=== PATIENT | male | born 2000 | race Caucasian/White ===

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

== ENCOUNTER 2021-06-11 14:29 | Emergency (ER) | payer MEDICAID ==
[~2021-06-11] VITALS: Ht 177.8 cm; Wt 105.8 kg
[2021-06-11 15:04] LABS: COLOR,URINE YELLOW
--- NOTE | 2021-06-11 15:04 | ED GU-Male ---
General Chief Complaint: - Reproductive Stated Complaint: TESTICULAR PAIN Nursing Triage Note: Patient presents to the ED with c/o bilateral testicular pain and swelling. Reports pain began after lifting a heavy tote on Friday and has not improved since. Denies difficulty or pain with urination. Source: patient History of Present Illness Date Seen by Provider: Jun 11, 2021 Time Seen by Provider: 14:31 Initial Comments 20-year-old male presenting with complaints of bilateral testicular pain and swelling since June 08. He states that he was lifting a heavy tote on Friday and felt pain after that. He has not had any improvement in his pain since then and actually feels like the swelling and pain may be is worsened. He denies any pain or difficulty with urination. He has had no nausea or vomiting. He feels like the pain is better if he is laying down and worse if he is standing or moving. He denies any fever or chills. He has not had symptoms l lois this previously. Timing/Duration: getting worse (since Thursday 06/08) Severity/Quality: moderate, sharp Location: scrotal (bilateral testes, left greater than right) Activities at Onset: physical activity (lifting a heavy tote) Prior Genitourinary Problems: none Associated Symptoms: No abdominal pain, No diaphoresis, No dysuria, No fever/chills, No loss of bladder control, No lower back pain, No lumps, No mass, No nausea/vomiting, No nocturia, No polyuria, No swelling, No syncope, No urinary frequency Allergies and Home Medications Allergies Coded Allergies: ibuprofen (Verified Allergy, Unknown, 06/11/21) Patient Home Medication List Home Medication List Reviewed: Yes Ciprofloxacin HCl (Ciprofloxacin HCl) 500 Mg Tablet, 500 MG PO BID Prescribed by: VILLA HAYES on 06/11/211702 Naproxen (Naproxen) 500 Mg Tablet, 500 MG PO Q12H PRN for pain/inflammation Prescribed by: VILLA HAYES on 06/11/211702 Review of Systems Review of Systems Constitutional: No chills, No fever EENTM: no symptoms reported Respiratory: no symptoms reported Cardiovascular: no symptoms reported Gastrointestinal: no symptoms reported Genitourinary: see HPI Musculoskeletal: no symptoms reported Skin: no symptoms reported; No change in color Psychiatric/Neurological: No Symptoms Reported Past Gznrhey-Bjwynw-Cnyuxe Hx Patient Social History Tobacco Use?: No Use of E-Cig and/or Vaping dev: No Substance use?: No Alcohol Use?: No Pt feels they are or have been: No Immunizations Up To Date Influenza Vaccine Up-to-Date: No; Not Current First/Initial COVID19 Vaccinat: Not currently vaccinated Seasonal Allergies Seasonal Allergies: No Past Medical History Surgery/Hospitalization HX: None Surgeries: No Respiratory: No Cardiac: No Neurological: No Genitourinary: No Gastrointestinal: No Musculoskeletal: Yes (FX RIGHT ARM) Fractures Endocrine: No HEENT: No Cancer: No Psychosocial: No Integumentary: No Blood Disorders: No Physical Exam Vital Signs Vital Signs - First Documented 06/11/21 14:31 Temp 37.5 Pulse 100 Resp 94 B/P (MAP) 148/79 (102) Pulse Ox 100 Capillary Refill : Less Than 3 Seconds Height, Weight, BMI Height: '" Weight: lbs. oz. kg; 33.00 BMI Method: General Appearance: WD/WN, no apparent distress HEENT: PERRL/EOMI Neck: non-tender, full range of motion, supple, normal inspection Cardiovascular: normal peripheral pulses, regular rate, rhythm Respiratory: chest non-tender, lungs clear, normal breath sounds, no respiratory distress, no accessory muscle use Gastrointestinal: normal bowel sounds, non tender, soft, no pulsatile mass Rectal: deferred Male: testicular tenderness (bilateral left greater than right), other (sw elling to scrotum, no discoloration. No hernia noted on exam with standing) Extremities: normal range of motion, non-tender, normal inspection, no pedal edema, no calf tenderness, normal capillary refill Neurologic/Psychiatric: alert, oriented x 3 Skin: normal color, warm/dry Progress/Results/Core Measures Suspected Sepsis SIRS Temperature: Pulse: 100 Respiratory Rate: 94 Blood Pressure 148 /79 Mean: 102 Results/Orders My Orders Orders - VILLA HAYES MD Ua Culture If Indicated (06/11/21 14:35) Drug Screen Stat (Urine) (06/11/21 14:35) Neis Rebel Dna Urine Test (06/11/21 14:35) Chlamydia Trachomatis Urine (06/11/21 14:35) Us Scrotum (Testicle) [id number] (06/11/21 14:48) Vital Signs/I&O 06/11/21 06/11/21 14:31 17:00 Temp 37.5 37.5 Pulse 100 95 Resp 94 94 B/P (MAP) 148/79 (102) 138/75 Pulse Ox 100 100 Capillary Refill : Less Than 3 Seconds Blood Pressure Mean: 102 Progress Note #1: Progress Note Check urine as well as order an ultrasound to evaluate for hydrocele or hernia or intermittent torsion. pt declined medicine for pain as long as he is resting on bed it is not hurting him Progress Note #2: Progress Note Urine appeared concentrated with an elevated specific gravity. He also had some ketones and blood in the urine. The urine drug screen was negative. His ultrasound of the scrotum and testicles showed some soft tissue edema to the scrotum for possible cellulitis however he had no signs of epididymitis or fluid collection with the testicles. There is no torsion as he had good blood flow to both testicles. There is no sign of hernia. Counseled patient on results and advised that we would cover him with an antibiotic as well as an anti- inflammatory. Use supportive underwear. Given information for primary care provider as well as urology if he was having continued or worsening problems Diagnostic Imaging Diagonstic Imaging: Ultrasound Plain Films/CT/US/NM/MRI: other (scrotum/testicle) Comments [facility] [place] NAME: ORLY AREVALO Andres Gonzalez [facility] REC#: [id number] PT STATUS: REG ER : 2001 PHYSICIAN: VILLA HAYES MD ADMIT DATE: 06/11/21/ER FS Signed Date of Exam:06/11/21 US SCROTUM (TESTICLE) [id number] EXAMINATION: US Scrotum w/ Duplex. TECHNIQUE: Multiple real-time chow images were obtained of the scrotum in various projections bilaterally. Color Doppler images were also obtained. HISTORY: Bilateral swelling/pain worsening since 06/08 after lifting. COMPARISON: None available. FINDINGS: The right testis has a homogeneous echogenic appearance without intratesticular mass or hyperemia, and measures 3.7 x 3.0 x 2.1 cm. The right epididymis is normal. No extratesticular mass. No hydrocele or varicocele. The left testis has a homogeneous echogenic appearance without intratesticular mass or hyperemia, and measures 4.3 x 2.7 x 2.2 cm. The left epididymis is normal. No extratesticular mass. No hydrocele or varicocele. Color and pulsed Doppler imaging demonstrates symmetric, flow with normal arterial waveforms obtained from each testis. There is scrotal skin thickening within the region of concern without focal mass or fluid collection. IMPRESSION: 1. Scrotal wall thickening without focal mass or fluid collection. 2. Otherwise, unremarkable scrotal ultrasound. Dictated by: Dictated on workstation # [id number] Dict: 06/11/21 1544 Trans: 06/11/21 1650 [id number] Interpreted by: MANPREET MCKEON DO Electronically signed by: MANPREET MCKEON DO 06/11/21 165 Departure Impression Primary Impression: Cellulitis of scrotum Additional Impression: Scrotal pain Disposition: HOME, SELF-CARE Condition: Stable Departure-Patient Inst. Decision time for Depature: 17:00 Referrals: NO,LOCAL PHYSICIAN (PCP) Primary Care Physician YOKASTA NORTON MD [facility] Call [phone] to get established with primary provider and follow up for continued concerns Patient Instructions: Cellulitis (Skin Infection), Adult ED Add. Discharge Instructions: Try to wear supportive underwear to help support your scrotum and testicles. Take medicine for inflammation and infection. Try to rest and limit your lifting for the next few days Follow up with clinic for continued concerns and see Urologist, Dr. Norton, for worsening symptoms. All discharge instructions reviewed with patient and/or family. Voiced understanding. Scripts Ciprofloxacin HCl (Ciprofloxacin HCl) 500 Mg Tablet 500 MG PO BID for cellulitis for 10 Days, #20 TAB 0 Refills Prov: VILLA HAYES MD 06/11/21 Naproxen (Naproxen) 500 Mg Tablet 500 MG PO Q12H PRN for pain/inflammation for 7 Days, #14 TAB 0 Refills Prov: VILLA HAYES MD 06/11/21 Work/School Note: Work Release Form Date Seen in the Emergency Department: Jun 11, 2021 Return to Work: Jun 13, 2021 Other Restrictions Listed Below: Limit lifting to less than 20 Lb for 5-7 days VILLA HAYES MD Jun 11, 2021 15:04
[2021-06-11 15:05] LABS: BACTERIA,URINE TRACE /HPF; BILIRUBIN,URINE NEGATIVE (NEGATIVE); CLARITY,URINE CLEAR; GLUCOSE, URINE (UA) NEGATIVE (NEGATIVE); KETONES,URINE TRACE (NEGATIVE); LEUKOCYTE ESTERASE ,URINE NEGATIVE (NEGATIVE); NITRITE,URINE NEGATIVE (NEGATIVE); PROTEIN,URINE TRACE (NEGATIVE); WBC,URINE 0-2 /HPF
[2021-06-11 15:06] LABS: AMPHETAMINE SCREEN, URINE NEGATIVE (NEGATIVE); BARBITURATE SCREEN URINE NEGATIVE (NEGATIVE); BENZODIAZEPINES SCREEN URINE NEGATIVE (NEGATIVE); CANNABINOID SCREEN, URINE NEGATIVE (NEGATIVE); COCAINE SCREEN URINE NEGATIVE (NEGATIVE); METHADONE STAT NEGATIVE (NEGATIVE); METHAMPHETAMINE SCREEN URINE S NEGATIVE (NEGATIVE); OPIATE SCREEN URINE NEGATIVE (NEGATIVE); OXYCODONE STAT NEGATIVE (NEGATIVE); PROPOXYPHENE STAT NEGATIVE (NEGATIVE); TRICYCLIC ANTIDEPRESSANTS SCRE NEGATIVE (NEGATIVE)
--- NOTE | 2021-06-11 16:08 | Diagnostic Imaging Report ---
EXAMINATION: US Scrotum w/ Duplex. TECHNIQUE: Multiple real-time chow images were obtained of the scrotum in various projections bilaterally. Color Doppler images were also obtained. HISTORY: Bilateral swelling/pain worsening since 06/08 after lifting. COMPARISON: None available. FINDINGS: The right testis has a homogeneous echogenic appearance without intratesticular mass or hyperemia, and measures 3.7 x 3.0 x 2.1 cm. The right epididymis is normal. No extratesticular mass. No hydrocele or varicocele. The left testis has a homogeneous echogenic appearance without intratesticular mass or hyperemia, and measures 4.3 x 2.7 x 2.2 cm. The left epididymis is normal. No extratesticular mass. No hydrocele or varicocele. Color and pulsed Doppler imaging demonstrates symmetric, flow with normal arterial waveforms obtained from each testis. There is scrotal skin thickening within the region of concern without focal mass or fluid collection. IMPRESSION: 1. Scrotal wall thickening without focal mass or fluid collection. 2. Otherwise, unremarkable scrotal ultrasound. Dictated by: Dictated on workstation # [id number]
[2021-06-11 17:00] VITALS: BP 138/75
[2021-06-11] MEDS ORDERED: NAPR-915 PO (17:03)
[2021-06-11] MEDS ORDERED: CIPR500T5 PO (17:03)
== END 2021-06-11 17:05 | disposition home or self-care (01) ==
LOC: EDUNIT# 14:29 → ER FS 14:31
DX: N49.2 Inflammatory disorders of scrotum (principal); N50.82 Scrotal pain
CPT/HCPCS: 76870; 80306; 81000; 87491; 87591; 99282

== ENCOUNTER 2021-06-18 13:04 | Emergency (ER) | payer MEDICAID ==
[~2021-06-18] VITALS: Ht 177.8 cm; Wt 102.1 kg
[~2021-06-18 13:04] MED LIST: CIPR500T5 PO; NAPR-915 PO
[2021-06-18] MEDS ORDERED: DOXYCYCLINE 100 MG (VIBRAMYCIN) TABLET PO STA (13:25)
[2021-06-18] MEDS ORDERED: LIDOCAINE/EPI 2% 1:100,00 (XYLOCAINE) 20 ML VIAL INJ ONE (13:30)
[2021-06-18] MEDS ORDERED: DOXY100T2 PO (13:35)
--- NOTE | 2021-06-18 13:35 | ED Integumentary General ---
General Chief Complaint: Skin/Wound Problems Stated Complaint: TESTICULAR WOUND Source: patient Exam Limitations: no limitations History of Present Illness Date Seen by Provider: Jun 18, 2021 Time Seen by Provider: 13:10 Initial Comments 20-year-old male with no significant past medical history coming in due to continued pain, swelling, and on drainage from his scrotum. This has been progressing over the past 9 to 10 days. He was seen here roughly a week ago diagnosed with cellulitis of the scrotum. He was started on ciprofloxacin and naproxen. He began to have some mild swelling, and he was unsure if it was the Cipro (allergic to ibuprofen). He went to an urgent care a couple days later and was changed over to Keflex so he has been taking that instead. He noticed that the swelling and pain has been slightly getting better after it was getting worse again. He noticed it opened up today and is having some purulent drainage. Denies any fever, abdominal pain, nausea, vomiting, diarrhea, weakness, numbness, dysuria, or any other concerns. On review of the chart, he had an ultrasound done here of his scrotum showing signs of cellulitis but no torsion or epididymitis. His chlamydia and gonorrhea tests were negative. Allergies and Home Medications Allergies Coded Allergies: ibuprofen (Verified Allergy, Unknown, 06/11/21) Patient Home Medication List Home Medication List Reviewed: Yes Cephalexin (Cephalexin) 250 Mg/5 Ml Susp.recon, (Reported) Entered as Reported by: DIANDRA FIELDS on 06/18/21 1352 Last Action: New Order Doxycycline Hyclate (Doxycycline Hyclate) 100 Mg Tablet, 100 MG PO BID Prescribed by: RODNEY HARDWICK on 06/18/21 1335 Naproxen (Naproxen) 500 Mg Tablet, 500 MG PO Q12H PRN for pain/inflammation Prescribed by: VILLA HAYES on 06/11/211702 Discontinued Medications Ciprofloxacin HCl (Ciprofloxacin HCl) 500 Mg Tablet, 500 MG PO BID Discontinued Reason: Referral/FU Appt-Addtl Prescribed by: VILLA HAYES on 06/11/211702 Last Action: Discontinued Review of Systems Review of Systems Constitutional: No chills EENTM: No blurred vision Respiratory: No cough Cardiovascular: No chest pain Gastrointestinal: No abdominal pain Genitourinary: other (scrotal pain) Musculoskeletal: no symptoms reported Skin: no symptoms reported Psychiatric/Neurological: No Symptoms Reported Endocrine: No Symptoms Reported Hematologic/Lymphatic: No Symptoms Reported All Other Systems Reviewed Negative Unless Noted: Yes Past Xeruedo-Ptfebp-Gkrnqu Hx Patient Social History Tobacco Use?: No Immunizations Up To Date Influenza Vaccine Up-to-Date: No; Not Current First/Initial COVID19 Vaccinat: Not currently vaccinated Second COVID19 Vaccination Declan: Not currently vaccinated Third COVID19 Vaccination Date: Not currently vaccinated Seasonal Allergies Seasonal Allergies: No Past Medical History Surgery/Hospitalization HX: None Surgeries: No Respiratory: No Cardiac: No Neurological: No Genitourinary: No Gastrointestinal: No Musculoskeletal: Yes (FX RIGHT ARM) Fractures Endocrine: No HEENT: No Cancer: No Psychosocial: No Integumentary: No Blood Disorders: No Physical Exam Vital Signs Vital Signs - First Documented 06/18/21 13:15 Temp 36.5 Pulse 87 Resp 20 B/P (MAP) 150/74 (99) Pulse Ox 97 O2 Delivery Room Air Capillary Refill : General Appearance: WD/WN, no apparent distress HEENT: PERRL/EOMI, normal ENT inspection, pharynx normal Neck: non-tender, full range of motion, supple, normal inspection Cardiovascular: regular rate, rhythm, no edema, no murmur Respiratory: chest non-tender, lungs clear, normal breath sounds, no respiratory distress, no accessory muscle use Gastrointestinal: normal bowel sounds, non tender, soft; No distended, No guarding, No rebound Back: normal inspection, no CVA tenderness Extremities: normal range of motion, non-tender, normal inspection, no pedal edema, no calf tenderness Neurologic/Psychiatric: no motor/sensory deficits, alert, normal mood/affect Skin: normal color, warm/dry, other (Scrotal induration as well as palpable fluctuance with abscess, the wound has slightly open with some purulent drainage) Lymphatic: no adenopathy Procedures/Interventions I&D : Site: scrotum Blade Size: 11 Progress 2 single stab incisions were made in the scrotum with a small amount of purulent discharge and serosanguineous fluid, hemostatic after procedure, tolerated it well. He was numbed with lidocaine 2% with epinephrine with good anesthesia Progress/Results/Core Measures Results/Orders My Orders Orders - RODNEY HARDWICK MD Lidocaine/Epi 2% 1:100,000 (Xylocaine/Ep (06/18/21 13:30) Doxycycline Hyclate Tablet (Vibramycin T (06/18/21 13:25) Medications Given in ED Current Medications Medications Dose Ordered Sig/Ekaterina Route Start Time Stop Time Status Last Admin Dose Admin Lidocaine/ Epinephrine 20 ml ONCE ONCE INJ 06/18/21 13:30 06/18/21 13:31 DC 06/18/21 13:46 20 ML Vital Signs/I&O 06/18/21 13:15 Temp 36.5 Pulse 87 Resp 20 B/P (MAP) 150/74 (99) Pulse Ox 97 O2 Delivery Room Air Progress Progress Note : Progress Note 20-year-old male with above history coming in due to scrotal swelling, pain, no drainage. ABCs were intact and vitals were stable on presentation. Physical exam consistent with a scrotal abscess with some mild overlying cellulitis that has opened up and is draining spontaneously. I did a [id number] ultrasound confirming the abscess. We cleaned him, numbed the area with lidocaine, and made a small incision to assist with the drainage with a small amount of puru lent drainage. Repeat ultrasound did not see any more drainable abscess, and does have some thickened skin consistent with cellulitis. We will have him follow-up with urology. Will add on doxycycline for likely staph coverage. Departure Impression Primary Impression: Scrotal abscess Disposition: 01 HOME, SELF-CARE Condition: Stable Departure-Patient Inst. Decision time for Depature: 14:35 Referrals: NO,LOCAL PHYSICIAN (PCP) Primary Care Physician YOKASTA NORTON MD Patient Instructions: Abscess Incision and Drainage (DC) Add. Discharge Instructions: Please call the urologist, Dr. Norton's office and schedule an appointment as soon as possible to be sure your symptoms are improving. Finish all the antibiotics you have already been prescribed, and we will add one for you to finish as well. Take Tylenol as needed for pain. You and also do warm baths with Epsom salt soaks to help the drainage come out. Scripts Clindamycin HCl (Clindamycin HCl) 300 Mg Capsule 300 MG PO Q6H for 10 Days, #40 CAP Prov: RODNEY HARDWICK MD 06/18/21 Work/School Note: School/Childcare Release, Date Seen in the Emergency Department: Jun 18, 2021 Time Dismissed from Emergency Department: 13:35 Return to School: Jun 19, 2021 Restrictions: No Restrictions Work Release Form Date Seen in the Emergency Department: Jun 18, 2021 Return to Work: Jun 19, 2021 Restrictions: No Restrictions RODNEY HARDWICK MD Jun 18, 2021 13:35
[2021-06-18] MEDS ORDERED: CEPH250S (13:52)
[2021-06-18] MEDS ORDERED: CLIN-144 PO (14:37)
[2021-06-18 14:50] VITALS: BP 148/69
== END 2021-06-18 14:50 | disposition home or self-care (01) ==
LOC: EDUNIT# 13:04 → ER FS 13:06
DX: N49.2 Inflammatory disorders of scrotum (principal)
CPT/HCPCS: 10060